=== PATIENT | female | born 1955 | race Caucasian/White ===

== ENCOUNTER 2017-01-23 14:33 | Emergency (ER) | payer MEDICAID, OTHER ==
[~2017-01-23] VITALS: Ht 157.5 cm; Wt 74.0 kg
[2017-01-23 20:29] VITALS: BP 153/78
== END 2017-01-23 20:29 | disposition home or self-care (01) ==
LOC: ER 17:49
DX: S40.011A Contusion of right shoulder, initial encounter (principal); S00.03XA Contusion of scalp, initial encounter; R51 Headache; M54.2 Cervicalgia; S40.021A Contusion of right upper arm, initial encounter; M25.521 Pain in right elbow; M25.531 Pain in right wrist; R07.81 Pleurodynia; M25.561 Pain in right knee; M25.571 Pain in right ankle and joints of right foot; W19.XXXA Unspecified fall, initial encounter; Y93.9 Activity, unspecified; Y92.9 Unspecified place or not applicable; Z90.710 Acquired absence of both cervix and uterus; Z90.49 Acquired absence of other specified parts of digestive tract; R03.0 Elevated blood-pressure reading, without diagnosis of hypertension; M19.011 Primary osteoarthritis, right shoulder
CPT/HCPCS: 70450; 73030; 99284